=== PATIENT | female | born 1945 | race Caucasian/White ===

== ENCOUNTER 2018-02-22 03:05 | Inpatient (IN) | payer MEDICARE, OTHER ==
[~2018-02-22] VITALS: Ht 167.6 cm; Wt 81.2 kg
[2018-02-22 03:05] VITALS: BP 111/71
--- NOTE | 2018-02-22 03:05 | NUR ---
PATIENT BIB BLS TO ER BED 9.
--- NOTE | 2018-02-22 03:10 | NUR ---
BIBA FOR C/O VOMITING X5 HOURS S/P EATING PASTA, 5/10 ABD PAIN. ALSO REPORTS SYNCOPAL EPISODE X1. [facility] GAVE 4MG ZOFRAN PO WITH MILD RELIEF. AAOX4 WITH STEADY GAIT. LUNGS CLEAR BILATERALLY, HEART RATE EVEN AND REGULAR. PATIENT POSITIONED FOR COMFORT; HOB ELEVATED; BEDRAILS UP X2; BED DOWN. ER MD MADE AWARE OF PT STATUS. PMH--PREBILE CIRRHOSIS, AORTAL ANEURYSM ALLERGIES---PCN
[2018-02-22] MEDS ORDERED: URSO300C14 PO (03:20)
[2018-02-22] MEDS ORDERED: FAMOTIDINE 20 MG/2 ML VIAL IVP ONE (03:25)
[2018-02-22] MEDS ORDERED: ONDANSETRON 4 MG/2 ML VIAL IVP ONE (03:25)
[2018-02-22] MEDS ORDERED: ONDANSETRON 4 MG/2 ML VIAL ONE (03:28)
--- NOTE | 2018-02-22 03:28 | NUR ---
Dr. Barrett evaluating patient at bedside.
[2018-02-22 03:52] LABS: ALBUMIN 4.1 g/dL (3.4-5.0); ANION GAP 15.9 (8-16); ASPARTATE AMINOTRANSFERASE 30 U/L (15-37); CARBON DIOXIDE 23.8 mmol/L (21-32); CHLORIDE 102 mmol/L (98-107); CREATININE 1.4 mg/dL (0.6-1.3); GLUCOSE 159 mg/dL (74-106); LIPASE 130 U/L (73-393); POTASSIUM 3.7 mmol/L (3.5-5.1); SODIUM SERUM 138 mmol/L (136-145); TOTAL BILIRUBIN 0.6 mg/dL (0.0-1.0); UREA NITROGEN, BLOOD 26 mg/dL (7-18)
[2018-02-22 03:53] LABS: APPEARANCE,URINE CLEAR (CLEAR); BILIRUBIN,URINE NEGATIVE (NEGATIVE); BLOOD, URINE NEGATIVE (NEGATIVE); COLOR,URINE YELLOW (YELLOW); LEUKOCYTE ESTERASE ,URINE 1+ (NEGATIVE); NITRITE, URINE NEGATIVE (NEGATIVE); PH,URINE 5.5 (5.0-9.0); UGLUCOSE NEGATIVE (NEGATIVE)
[2018-02-22 04:08] LABS: HEMATOCRIT 42.6 % (36-48); HEMOGLOBIN 14.3 g/dL (12.0-16.0); RED BLOOD CELL COUNT(AUTO) 4.57 MIL/uL (4.20-5.40); WHITE BLOOD COUNT (AUTO) 9.5 K/uL (4.8-10.8)
[2018-02-22 04:09] LABS: MEAN CORPUSCULAR HEMOGLOBIN 31 pg (27-31); MEAN CORPUSCULAR HGB CONC 34 g/dL (33-37); MEAN CORPUSCULAR VOLUME 93.3 fL (80-94); PLATELET COUNT (AUTO) 249 K/uL (140-450); RED CELL DISTRIBUTION WIDTH 13.1 % (11.6-13.7)
[2018-02-22 04:10] LABS: RBC,URINE 0-5 (RARE) /HPF (0-5)
[2018-02-22 04:10] LABS: LYMPHOCYTES % (MANUAL) 4 % (20-46); MONOCYTES % (MANUAL) 1 % (5-12)
[2018-02-22] MEDS ORDERED: NACL 0.9% 1,000 ML IV SCH (04:15)
[2018-02-22] MEDS ORDERED: LEVOFLOXACIN 750 MG/D5W PREMIX 150 ML IV ONE (04:25)
--- NOTE | 2018-02-22 04:40 | NUR ---
PT TO CT VIA DIANA IN STABLE CONDITION
[2018-02-22] MEDS ORDERED: METOCLOPRAMIDE 10 MG/2 ML INJ VIAL IVP ONE (05:10)
--- NOTE | 2018-02-22 05:46 | NUR ---
Patient appears to be resting comfortably in bed. Vital Signs within normal limits. Respirations even and unlabored.
[2018-02-22] MEDS ORDERED: diphenhydrAMINE 50 MG/ML VIAL IVP ONE (06:00)
--- NOTE | 2018-02-22 06:00 | NUR ---
PT C/O RT LOWER LEG CRAMPING. ER MD NOTIFTED, IVP MEDS GIVEN.
[2018-02-22] MEDS ORDERED: diphenhydrAMINE 50 MG/ML VIAL ONE (06:03)
--- NOTE | 2018-02-22 06:15 | NUR ---
Patient appears to be resting comfortably in bed. Vital Signs within normal limits. Respirations even and unlabored.
--- NOTE | 2018-02-22 06:22 | NUR ---
PER SIRIA ADMITTING, PTS CURRENT LISTED INSURANCE IS MEDIC[employer], WILL NOW BE CHANGED TO [employer]. PT WILL STILL BE ADMITTED TO [facility]ING [employer]
[2018-02-22] MEDS ORDERED: ONDANSETRON 4 MG/2 ML VIAL IM/IVP PRN (06:25)
[2018-02-22] MEDS ORDERED: LORazepam 2 MG/ML VIAL IM/IVP PRN (06:25)
[2018-02-22] MEDS ORDERED: ACETAMINOPHEN 325 MG TAB PO PRN (06:25)
[2018-02-22] MEDS ORDERED: MORPHINE SULFATE 2 MG/ML SYR IVP PRN (06:25)
[2018-02-22] MEDS ORDERED: DOCUSATE SODIUM 100 MG GELCAP PO PRN (06:25)
[2018-02-22] MEDS ORDERED: HYDROcodone/APAP 5/325 MG 1 TAB TAB PO PRN (06:25)
[2018-02-22] MEDS ORDERED: ZOLPIDEM 5 MG TAB PO PRN (06:25)
--- NOTE | 2018-02-22 06:41 | NUR ---
Patient will be admitted to care of DR BOYCE. Admited to TELE. Will go to room 105A. Belongings list completed. Report to BLANCO.
[2018-02-22 06:43] LABS: BARBITURATE, URINE NEG. ng/ml (NEG <=200); BENZODIAZEPINE, URINE NEG. ng/mL (NEG <=200); CANNABINOID, URINE NEG. ng/mL (NEG <=50); COCAINE, URINE NEG. ng/mL (NEG <=300); OPIATE, URINE NEG. ng/mL (NEG <=2000); PHENCYCLIDINE SCREEN,URINE NEG. ng/mL (NEG <=25)
--- NOTE | 2018-02-22 06:50 | NUR ---
PT ARRIVED ON THE UNIT WITH 2 ER NURSES. PT AMBULATED IN A WHEELCHAIR. PT AMBULATED TO THE BED. PT IN STABLE CONDITION.
--- NOTE | 2018-02-22 07:10 | NUR ---
RECEIVED REPORT FROM FUEL VERIFICATION TECHNICIAN NURSE. PT IS AWAKE AND ORIENTED. INTRODUCED MYSELF AND UPDATED THE BOARD. PT IS HERE FOR ACUTE BOWEL OBSTRUCTION. PER PT, PT HAD DINNER, HAD AN EPISODE W/ BOYFRIEND, AND STARTED FEELING NAUSEATED AND VOMITED. SKIN INTACT. IV ON R AC 20G SL. LBM ON 02/21/18. V/S WITHIN NORMAL RANGE. DENIES NAUSEA OR PAIN. NO EPISODES OF VOMITING SINCE IN THE ER. NO SIGNIFICANT MEDICAL HX. ONLY TAKE ONE MED. MRSA SCREENING DONE. PT IN YELLOW GOWN, ARM BAND, SIGN ON DOOR, AND YELLOW SOCKS. HOME MED TAKEN TO PHARMACY FOR DISPENSING. WILL START ADMISSIONS.
[2018-02-22 07:14] LABS: PROTHROMBIN TIME 10.1 secs (10.8-13.4)
[2018-02-22 07:21] LABS: CHOL/HDL RATIO 2.3 (1-4.5); THYROID STIMULATING HORMONE 2.92 uIU/mL (0.34-3.74)
[2018-02-22 07:37] LABS: PHOSPHORUS 3.8 mg/dL (2.5-4.9)
[2018-02-22 08:00] VITALS: BP 90/57
--- NOTE | 2018-02-22 08:17 | NUR ---
PATIENT HAS BEEN SCREENED AND CATEGORIZED MODERATE NUTRITION RISK. PATIENT WILL BE SEEN WITHIN 3-5 DAYS OF ADMISSION. 02/24/18 02/26/[address]
--- NOTE | 2018-02-22 08:21 | NUR ---
RAD IS HERE TO TAKE PT FOR BOWEL FOLLOW THROUGH.
--- NOTE | 2018-02-22 09:20 | NUR ---
RAD HERE TO TAKE MORE PICTURES OF BOWELS.
[2018-02-22] MEDS: LACTOBACILLUS RHAMNOSUS GG 1 EACH CAP PO SCH (09:37)
[2018-02-22] MEDS: NACL 0.9% 1,000 ML IV SCH (09:37)
--- NOTE | 2018-02-22 09:41 | NUR ---
ADMINISTERED FLUIDS AND LACTOBACILLUS. PT TOLERATED WELL. DENIES PAIN OR NAUSEA.
[2018-02-22] MEDS ORDERED: URSODIOL 500MG TABLET PO SCH (10:30)
--- NOTE | 2018-02-22 10:35 | NUR ---
DR. SIM HERE FOR ASSESSMENT
[2018-02-22 12:00] VITALS: BP 110/70
[2018-02-22] MEDS: URSODIOL 500MG TABLET PO SCH (12:26)
--- NOTE | 2018-02-22 12:30 | NUR ---
ADMINISTERED PT'S OWN MED W/ LITTLE WATER. PT TOLERATED WELL. PER PT, VOMITED. 50ML OF EMESIS. WILL CONTINUE TO MONITOR PT.
--- NOTE | 2018-02-22 13:29 | NUR ---
Clinical review faxed to [facility] [phone]
--- NOTE | 2018-02-22 13:39 | NUR ---
PT VISITING WITH FAMILY AND FRIENDS. PT IS NOT NAUSEATED. NO MORE VOMITING. NO PAIN. HAD A BM. WILL CONTINUE TO MONITOR PT.
--- NOTE | 2018-02-22 14:19 | NUR ---
3 ATTEMPTS TO INSERT NG TUBE. UNSUCCESSFUL. PT STARTED TO CRY AND REFUSED THE NG TUBE. DR BHAKTA NOTIFIED. SHE WILL TRY TO TALK TO THE PT AND SEE IF WE CAN TRY AGAIN.
[2018-02-22 16:00] VITALS: BP 104/64
--- NOTE | 2018-02-22 18:00 | NUR ---
PT UP AND ABOUT THE ROOM. HAD ANOTHER LARGE BM. NO PAIN. NO NAUSEA. NO VOMITING. FEELING BETTER. WILL CONTINUE TO MONITOR PT.
--- NOTE | 2018-02-22 19:15 | NUR ---
ENDORSED PT TO THE SUPERVISOR SHIPFITTERS NURSE AT BEDSIDE FOR CONTINUITY OF CARE. PT IS IN STABLE CONDITION.
--- NOTE | 2018-02-22 19:16 | NUR ---
REPORT RECEIVED FROM AM NURSE AT BEDSIDE. PT IN STABLE CONDITION. AAOX4. INTRODUCED SELF TO PT AND FAMILY AND BOARD UPDATED. PT IS A FALL RISK BUT IS AMBULATORY WITH A STEADY GAIT. SKIN WARM, DRY, AND INTACT WITH NO OPEN WOUNDS. IV SITE PATENT AND INTACT RUNNING NS@60ML/HR. BED LOCKED IN LOW POSITION. CALL DUKES WITHIN REACH. PT ASKED ABOUT THE PLAN OF CARE. CONSULTED BY DR. SIM WITH NO PLANS OF SX. WILL CONSULT RESIDENT.
[2018-02-22 20:00] VITALS: BP 111/72
--- NOTE | 2018-02-22 20:45 | NUR ---
PT ASKED WHEN SHE WOULD BE ABLE TO GO HOME. DR. SIM HAD SEEN PT AND PT STATED THAT HE WOULD NOT BE DOING ANY PROCEDURES.
--- NOTE | 2018-02-22 23:10 | NUR ---
MD NOTIFIED THAT PT WAS ASKING ABOUT HER PLAN OF CARE. MD STATES THAT PT WOULD BE DISCHARGED TOMORROW DEPENDING ON TOMORROW'S LABS AND XRAY. PT WAS NOTIFIED OF THE PLAN.
[2018-02-23] VITALS: BP 102/57
--- NOTE | 2018-02-23 02:15 | NUR ---
PT SLEEPING COMFORTABLY. CHEST EXPANSION VISIBLE. NO S/S OF DISTRESS. WILL CONTINUE TO MONITOR.
[2018-02-23 04:00] VITALS: BP 94/55
--- NOTE | 2018-02-23 05:30 | NUR ---
PT AWAKE AND ALERT. WOKEN UP BY IV PUMP. NO S/S OF DISTRESS.
[2018-02-23] MEDS: NACL 0.9% 1,000 ML IV SCH ×3 (05:31→23:39)
[2018-02-23 06:06] LABS: BASOPHILS % (AUTO) 0.5 % (0.0-2.0); EOSINOPHILS # (AUTO) 0.1 K/uL (0-0.4); HEMATOCRIT 33.7 % (36-48); HEMOGLOBIN 11.2 g/dL (12.0-16.0); LYMPHOCYTES # (AUTO) 1.2 K/uL (2.5-16.5); LYMPHOCYTES % (AUTO) 26.2 % (20.5-51.1); MEAN CORPUSCULAR HEMOGLOBIN 32 pg (27-31); MEAN CORPUSCULAR HGB CONC 33 g/dL (33-37); MEAN CORPUSCULAR VOLUME 94.5 fL (80-94); MONOCYTES # (AUTO) 0.5 K/uL (0.8-1.0); MONOCYTES % (AUTO) 10.5 % (1.7-9.3); NEUTROPHILS # (AUTO) 2.8 K/uL (1.8-7.7); NEUTROPHILS % (AUTO) 60.8 % (42.2-75.2); PLATELET COUNT (AUTO) 197 K/uL (140-450); RED BLOOD CELL COUNT(AUTO) 3.56 MIL/uL (4.20-5.40); RED CELL DISTRIBUTION WIDTH 14.3 % (11.6-13.7); WHITE BLOOD COUNT (AUTO) 4.6 K/uL (4.8-10.8)
[2018-02-23 06:41] LABS: ANION GAP 9.3 (8-16); CARBON DIOXIDE 24.4 mmol/L (21-32); CHLORIDE 108 mmol/L (98-107); CREATININE 1.5 mg/dL (0.6-1.3); GLUCOSE 75 mg/dL (74-106); POTASSIUM 3.7 mmol/L (3.5-5.1); SODIUM SERUM 138 mmol/L (136-145); UREA NITROGEN, BLOOD 32 mg/dL (7-18)
--- NOTE | 2018-02-23 07:10 | NUR ---
REPORT GIVEN TO AM NURSE. PT IN STABLE CONDITION.
--- NOTE | 2018-02-23 07:15 | NUR ---
RECEIVED REPORT FROM NIGHT RN. PT IN STABLE CONDITION. SEEN SITTING IN CHAIR AT BEDSIDE. PT IS AMBULATORY. NO COMPLAINTS OF PAIN OR DISCOMFORT. DENIES VOMITING. STATES THAT SHE "FEELS A LOT BETTER". WILL CONTINUE TO MONITOR BOWEL OUTPUT. IV SITE PATENT AND RUNNING IVF PER MD ORDERS. ALL SAFETY MEASURES IN PLACE, WILL CONTINUE TO MONITOR.
[2018-02-23 08:00] VITALS: BP 97/69
[2018-02-23] MEDS ORDERED: LACTOBACILLUS RHAMNOSUS GG 1 EACH CAP PO SCH (09:00)
[2018-02-23] MEDS: LACTOBACILLUS RHAMNOSUS GG 1 EACH CAP PO SCH (09:10)
--- NOTE | 2018-02-23 09:10 | NUR ---
SCHEDULED MEDS GIVEN AT THIS TIME PER MD ORDERS. PT DENIES VOMITING. WILL CONTINUE TO MONITOR.
[2018-02-23 12:00] VITALS: BP 119/71
--- NOTE | 2018-02-23 12:28 | NUR ---
SPOKE WITH IDANIA FROM [facility] FAXED CONCURRENT REVIEW TO [facility] [phone] PHONE [phone]
[2018-02-23] MEDS: METOCLOPRAMIDE 10 MG TAB PO SCH ×2 (12:50→18:05)
[2018-02-23] MEDS: URSODIOL 500MG TABLET PO SCH (12:51)
--- NOTE | 2018-02-23 12:51 | NUR ---
PATIENT REPORTS ONE BOWEL MOVEMENT. SCHEDULED MEDICATIONS GIVEN AT THIS TIME. WILL CONTINUE TO MONITOR.
--- NOTE | 2018-02-23 13:50 | NUR ---
PT TOLERATED FULL LIQUID LUNCH WELL.
[2018-02-23 16:00] VITALS: BP 102/59
--- NOTE | 2018-02-23 16:50 | NUR ---
FAMILY MEMBER SEEN AT BEDSIDE TALKING TO PATIENT. PATIENT DENIES ABDOMINAL PAIN AND NAUSEA. WILL CONTINUE TO MONITOR.
--- NOTE | 2018-02-23 18:05 | NUR ---
SCHEDULED MEDS GIVEN PER MD ORDERS. PT IN STABLE CONDITION.
--- NOTE | 2018-02-23 19:26 | NUR ---
ENDORSED PLAN OF CARE TO TELETYPE TECHNICIAN. PT IN STABLE CONDITION.
--- NOTE | 2018-02-23 19:27 | NUR ---
RECEIVED PT FROM IDANIA RN PT AAOX4 AMBULATORY DENIES ANY ABD PAIN AND TOLERATED WELL CLEAR LIQUID DIET, IV ON RT ARM INFUSING WELL, RELATIVES AT BED SIDE INITIAL ASSESSMENT DONE
[2018-02-23 20:00] VITALS: BP 107/56
--- NOTE | 2018-02-23 22:00 | NUR ---
PT HAS A BM NOT PAIN ORAL CLEAR LIQUID DIET WELL TOLERATED VOIDING WELL
[2018-02-24] VITALS: BP 94/62
--- NOTE | 2018-02-24 01:00 | NUR ---
PT REMAIN STALB E SLEEPING WELL DENIES ANY PAIN OR DISCOMFORT
--- NOTE | 2018-02-24 04:00 | NUR ---
PT AMBULATES TO THE RESTROOM VOIDING WELL IN ON RT AC INFUSING WELL
[2018-02-24] MEDS: METOCLOPRAMIDE 10 MG TAB PO SCH (06:25)
--- NOTE | 2018-02-24 06:50 | NUR ---
PT VERBALIZED TO FEEL BETTER DENIES ANY PAIN IV ON RT ARM INFUSING WELL VSS
--- NOTE | 2018-02-24 07:15 | NUR ---
RECEIVED REPORT FROM RADIATION PHYSICIST NURSE KEVIN. PT IS AWAKE AND ORIENTED X4. INTRODUCED SELF AND UPDATED BOARD. PT DENIES NAUSEA, VOMITING OR ABD PAIN. NO SOB. NO COUGH. O2 SAT 98% ON RA. PT STATED THAT "DR WAS JUST IN ROOM AND SAID SHE CAN GO HOME TODAY." TOLD PT WILL WAIT FOR ORDERS FIRST. VERBALIZED UNDERSTANDING. NO SIGNS OF DISTRESS. WILL CONTINUE TO MONITOR.
[2018-02-24 07:39] LABS: BASOPHILS # (AUTO) 0.1 K/uL (0.00-0.22); BASOPHILS % (AUTO) 1.3 % (0.0-2.0); EOSINOPHILS # (AUTO) 0.1 K/uL (0-0.4); EOSINOPHILS % (AUTO) 2.9 % (0.0-4.0); HEMATOCRIT 32.1 % (36-48); HEMOGLOBIN 10.8 g/dL (12.0-16.0); LYMPHOCYTES # (AUTO) 0.9 K/uL (2.5-16.5); LYMPHOCYTES % (AUTO) 18.7 % (20.5-51.1); MEAN CORPUSCULAR HEMOGLOBIN 32 pg (27-31); MEAN CORPUSCULAR HGB CONC 34 g/dL (33-37); MEAN CORPUSCULAR VOLUME 94.2 fL (80-94); MONOCYTES # (AUTO) 0.4 K/uL (0.8-1.0); MONOCYTES % (AUTO) 8.7 % (1.7-9.3); NEUTROPHILS # (AUTO) 3.5 K/uL (1.8-7.7); NEUTROPHILS % (AUTO) 68.4 % (42.2-75.2); PLATELET COUNT (AUTO) 188 K/uL (140-450); RED CELL DISTRIBUTION WIDTH 13.9 % (11.6-13.7)
[2018-02-24] MEDS ORDERED: METO10TA98 PO (07:49)
[2018-02-24 08:00] VITALS: BP 122/64
[2018-02-24 08:03] LABS: ANION GAP 10.7 (8-16); CARBON DIOXIDE 25.4 mmol/L (21-32); CHLORIDE 107 mmol/L (98-107); CREATININE 1.1 mg/dL (0.6-1.3); GLUCOSE 88 mg/dL (74-106); POTASSIUM 4.1 mmol/L (3.5-5.1); SODIUM SERUM 139 mmol/L (136-145); UREA NITROGEN, BLOOD 19 mg/dL (7-18)
[2018-02-24] MEDS ORDERED: ATORVASTATIN 20 MG TAB PO SCH (09:00)
[2018-02-24] MEDS ORDERED: LEVOFLOXACIN 750 MG/D5W PREMIX 150 ML IV SCH (09:00)
[2018-02-24] MEDS ORDERED: ASCORBIC ACID 500 MG TAB PO SCH ×2 (09:25→09:30)
[2018-02-24] MEDS ORDERED: FERROUS GLUCONATE 324 MG TAB PO SCH ×2 (09:25→09:30)
[2018-02-24] MEDS ORDERED: NITR100C7 PO (09:33)
[2018-02-24] MEDS ORDERED: LACT10CA PO (09:33)
[2018-02-24] MEDS: LACTOBACILLUS RHAMNOSUS GG 1 EACH CAP PO SCH (10:00)
--- NOTE | 2018-02-24 11:45 | NUR ---
D/C PT TO GO HOME. GAVE D/C FORMS, INSTRUCTIONS, LABS, FOLLOW UP APPOINTMENT AND RX TO PT. PT VERBALIZED UNDERSTANDING AND SIGNED FORMS. REMOVED IV TO R AC 20G. IV CATHETER TIP INTACT. APPLIED DRESSING AND PRESSURE TO SITE, NO BLEEDING NOTED. REMOVED ID BANDS. PT CHANGED IN OWN CLOTHES, LEFT WITH ALL PERSONAL BELONGINGS. LEFT UNIT VIA AMBULATION. LEFT IN STABLE CONDITION.
== END 2018-02-24 11:45 | disposition home or self-care (01) | DRG 871 ==
LOC: MED 03:05 → MTU 06:28
PROVIDERS: ADMIT Family Medicine; ATTEND Family Medicine
DX: A41.9 Sepsis, unspecified organism (principal); N17.0 Acute kidney failure with tubular necrosis; K56.7 Ileus, unspecified; N39.0 Urinary tract infection, site not specified; D64.9 Anemia, unspecified; K74.60 Unspecified cirrhosis of liver; Z96.653 Presence of artificial knee joint, bilateral; E78.5 Hyperlipidemia, unspecified; E78.00 Pure hypercholesterolemia, unspecified; K76.0 Fatty (change of) liver, not elsewhere classified; Z88.0 Allergy status to penicillin; Z79.899 Other long term (current) drug therapy
CPT/HCPCS: 36415; 74018; 74250; 76705; 80048; 80053; 80305; 81001; 83036; 83690; 83735; 84100; 84134; 84443; 85025; 85610; 85730; 87040; 87081; 87086; 93005; 96365; 96366; 96375; 99285; J1200; J1956; J2405; J2765; J3490; J7030; J8597; Q0092